=== PATIENT | male | born 1980 | race African-American/Black ===

== ENCOUNTER 2017-03-23 01:07 | Emergency (ER) | payer OTHER ==
[~2017-03-23] VITALS: Ht 188 cm; Wt 77.0 kg
[2017-03-23] MEDS ORDERED: IBUPROFEN 400MG TABLET PO ONE (06:15)
[2017-03-23] MEDS ORDERED: ACETAMINOPHEN 500MG TABLET PO ONE (06:15)
[2017-03-23 06:45] VITALS: BP 125/79
== END 2017-03-23 07:06 | disposition home or self-care (01) ==
LOC: ER 01:07
DX: M25.511 Pain in right shoulder (principal); M79.674 Pain in right toe(s); J06.9 Acute upper respiratory infection, unspecified; B35.1 Tinea unguium; V19.3XXA Pedal cyclist (driver) (passenger) injured in unspecified nontraffic accident, initial encounter; Y93.55 Activity, bike riding; Y92.89 Other specified places as the place of occurrence of the external cause; Y99.8 Other external cause status
CPT/HCPCS: 71010; 73630; 99284

== ENCOUNTER 2017-04-06 01:10 | Emergency (ER) | payer OTHER ==
[~2017-04-06] VITALS: Ht 188 cm; Wt 80.0 kg
[2017-04-06] MEDS ORDERED: AZITHROMYCIN 500 MG TABLET PO ONE (01:45)
[2017-04-06] MEDS ORDERED: CEFTRIAXONE SODIUM 250 MG/VIAL IM ONE (01:45)
[2017-04-06] MEDS ORDERED: LIDOCAINE HCL 1% 20ML VIAL (Pyxis) INJ INFIL ONE (01:45)
[2017-04-06 01:48] LABS: CLARITY URINE CLEAR (CLEAR); COLOR URINE YELLOW (YELLOW); GLUCOSE URINE NEGATIVE (NEGATIVE); KETONES URINE TRACE (NEGATIVE); LEUKOCYTE ESTERASE URINE 2+ (NEGATIVE); NITRITE URINE NEGATIVE (NEGATIVE); OCCULT BLOOD URINE NEGATIVE (NEGATIVE); PH URINE 5.5 (4.5-8.0); PROTEIN URINE NEGATIVE (NEGATIVE); SPECIFIC GRAVITY URINE 1.028 (1.005-1.030); UROBILINOGEN URINE 0.2 E.U./dL (0.2-1.0)
[2017-04-06 03:13] VITALS: BP 131/78
[2017-04-10 04:17] LABS: CHLAMYDIA TRACHOMATIS NAA Negative (Negative); NEISSERIA GONORRHOEAE NAA Positive (Negative)
== END 2017-04-06 05:02 | disposition home or self-care (01) ==
LOC: ER 01:48
DX: Z20.2 Contact with and (suspected) exposure to infections with a predominantly sexual mode of transmission (principal); R36.9 Urethral discharge, unspecified; F17.200 Nicotine dependence, unspecified, uncomplicated; F12.10 Cannabis abuse, uncomplicated
CPT/HCPCS: 81001; 87491; 87591; 96372; 99284; J0696; J3490

== ENCOUNTER 2017-06-19 00:29 | Emergency (ER) | payer OTHER ==
[~2017-06-19] VITALS: Ht 188 cm; Wt 82.0 kg
[2017-06-19 03:45] VITALS: BP 132/76
[2017-06-19] MEDS ORDERED: METHOCARBAMOL 500MG TABLET PO ONE (04:15)
== END 2017-06-19 06:25 | disposition home or self-care (01) ==
LOC: ER 00:29
DX: S16.1XXA Strain of muscle, fascia and tendon at neck level, initial encounter (principal); S39.012A Strain of muscle, fascia and tendon of lower back, initial encounter; F17.200 Nicotine dependence, unspecified, uncomplicated; F12.10 Cannabis abuse, uncomplicated; V43.52XA Car driver injured in collision with other type car in traffic accident, initial encounter; Y93.89 Activity, other specified; Y92.488 Other paved roadways as the place of occurrence of the external cause
CPT/HCPCS: 72125; 73630; 99284; Z7610

== ENCOUNTER 2017-09-30 04:02 | Emergency (ER) | payer SELFPAY ==
[~2017-09-30] VITALS: Ht 188 cm; Wt 77.0 kg
[2017-09-30 07:50] VITALS: BP 117/81
[2017-09-30] MEDS ORDERED: CEFTRIAXONE SODIUM 250 MG/VIAL IM ONE (08:00)
[2017-09-30] MEDS ORDERED: LIDOCAINE HCL/PF 1% 10 MG/ML 30ML VIAL IJ ONE (08:00)
[2017-09-30] MEDS ORDERED: AZITHROMYCIN 500 MG TABLET PO ONE (08:00)
[2017-09-30] MEDS ORDERED: LIDOCAINE HCL 1% 20ML VIAL (Pyxis) INJ INFIL ONE (08:00)
== END 2017-09-30 08:20 | disposition home or self-care (01) ==
LOC: ER 04:02
DX: N34.2 Other urethritis (principal); Z20.2 Contact with and (suspected) exposure to infections with a predominantly sexual mode of transmission; F17.200 Nicotine dependence, unspecified, uncomplicated
CPT/HCPCS: 96372; 99283; J0696; J3490